=== PATIENT | female | born 1965 | race Caucasian/White ===

== ENCOUNTER → 2017-12-24 07:49 | Outpatient (CLI) | payer OTHER, SELFPAY ==
[2017-12-24 08:47] LABS: Hemoglobin A1C% w Est Avg Glu 7.3 % (4.0-6.0)
[2017-12-24 09:08] LABS: Alanine Aminotransferase 42 IU/L (9-52); Albumin 4.4 g/dL (3.5-5.0); Albumin Globulin Ratio 1.6 (1.0-2.8); Alkaline Phosphatase 66 U/L (38-126); Aspartate Aminotransferase 26 IU/L (14-36); BUN Creatinine Ratio 23.3 (6-22); Bilirubin Total 0.4 mg/dL (0.2-1.3); Blood Urea Nitrogen 14 mg/dL (7-17); Calcium 10.1 mg/dL (8.4-10.2); Carbon Dioxide 32 mmol/L (22-32); Chloride 98 mmol/L (98-107); Cholesterol 153 mg/dL (140-199); Estimated Glomerular Filt Rate > 60.0 mL/min (>60); Globulin 2.8 g/dL (1.7-4.1); Glucose 142 mg/dL (70-100); HDL Cholesterol 48 mg/dL (40-60); HEMOLYSIS < 15 (0-50); LDL Cholesterol Calculated 87 mg/dL (<100); Magnesium 1.5 mg/dL (1.6-2.3); Potassium 4.9 mmol/L (3.4-5.1); Sodium 143 mmol/L (137-145); Total Protein 7.2 g/dL (6.3-8.2); Triglycerides 91 mg/dL (35-150)
[2017-12-24 09:35] LABS: TSH w/ Reflex to FT4 0.26 uIU/mL (0.47-4.68)
[2017-12-24 10:12] LABS: Free T4, Direct Thyroxine 1.08 ng/dL (0.78-2.19)
== END ==
PROVIDERS: PCP Physician Assistant; Visit Provider Internal Medicine
DX: I47.2 Ventricular tachycardia (principal); E78.00 Pure hypercholesterolemia, unspecified
CPT/HCPCS: 36415; 80053; 80061; 83036; 83735; 84439; 84443

== ENCOUNTER → 2019-02-15 07:29 | Outpatient (CLI) | payer OTHER, SELFPAY ==
[2019-02-15 08:35] LABS: Add Manual Diff / Slide Review NO; Basophils Absolute Auto 100 /uL (0-100); Basophils Percent Auto 0.7 % (0-2); Eosinophils Absolute Auto 500 /uL (0-450); Eosinophils Percent Auto 4.2 % (2-4); Hemoglobin 14.2 g/dL (12.0-16.0); Lymphocytes Absolute Auto 3600 /uL (1100-4500); Lymphocytes Percent Auto 32.6 % (25-40); Mean Corpuscular Hemoglobin 27.1 PG (26-34); Mean Corpuscular Volume 82.1 fL (80-100); Monocytes Absolute Auto 900 /uL (0-900); Neutrophils Absolute Auto 6000 /uL (1500-7000); Neutrophils Percent Auto 54.5 % (50-75); Platelet Count 351 X10^3/uL (150-400); Red Blood Cell Count 5.24 X10^6/uL (4.0-5.2); Red Cell Distribution Width 15.4 % (11.6-14.8)
[2019-02-15 08:56] LABS: Alanine Aminotransferase 27 IU/L (9-52); Albumin 4.3 g/dL (3.5-5.0); Albumin Globulin Ratio 1.5 (1.0-2.8); Alkaline Phosphatase 66 U/L (38-126); Aspartate Aminotransferase 23 IU/L (14-36); BUN Creatinine Ratio 26.7 (6-22); Bilirubin Total 0.5 mg/dL (0.2-1.3); Blood Urea Nitrogen 16 mg/dL (7-17); Calcium 10.2 mg/dL (8.4-10.2); Carbon Dioxide 32 mmol/L (22-32); Chloride 98 mmol/L (98-107); Cholesterol 163 mg/dL (140-199); Estimated Glomerular Filt Rate > 60.0 mL/min (>60); Globulin 2.8 g/dL (1.7-4.1); Glucose 144 mg/dL (70-100); HDL Cholesterol 45 mg/dL (40-60); HEMOLYSIS < 15 (0-50); LDL Cholesterol Calculated 96 mg/dL (<100); Potassium 4.6 mmol/L (3.4-5.1); Sodium 140 mmol/L (137-145); Total Protein 7.1 g/dL (6.3-8.2); Triglycerides 109 mg/dL (35-150)
== END ==
PROVIDERS: PCP Physician Assistant; Visit Provider Physician Assistant
DX: E11.9 Type 2 diabetes mellitus without complications (principal); E78.5 Hyperlipidemia, unspecified; I10 Essential (primary) hypertension
CPT/HCPCS: 36415; 80053; 80061; 83036; 85025

== ENCOUNTER → 2019-11-10 10:30 | Outpatient (CLI) | payer OTHER, SELFPAY | PROVIDERS: PCP Physician Assistant; Referring Provider Physician Assistant; Visit Provider Physician Assistant | DX: Z20.828 Contact with and (suspected) exposure to other viral communicable diseases (principal) | CPT/HCPCS: 36415; 86769 ==

== ENCOUNTER → 2020-01-28 08:56 | Outpatient (CLI) | payer OTHER, SELFPAY ==
--- NOTE | 2020-01-28 | DI.MG.S_ITS ---
BILATERAL DIGITAL DIAGNOSTIC MAMMOGRAM 3D/2D: 01/28/2020 CLINICAL: Right breast pain. Comparison is made to exams dated: 01/20/2017 mammogram, 09/24/2013 mammogram, and 04/18/2009 mammogram - [facility]. There are scattered fibroglandular elements in both breasts. There is a stable 8 mm oval asymmetry in the right breast central to the nipple anterior depth. No other significant masses, calcifications, or other findings are seen in either breast. Specifically, no finding to correspond to the patient's pain. IMPRESSION: INCOMPLETE: NEEDS ADDITIONAL IMAGING EVALUATION The 8 mm oval asymmetry in the right breast is stable but not previously characterized. There is no abnormality seen in the right breast to correspond with the pain in the middle depth in the superior aspect. An ultrasound is recommended. This was performed immediately following this exam. This exam was interpreted at Station ID: [id number]. NOTE: For mammograms, a report in lay terms will be sent to the patient. Approximately 15% of breast malignancies will not be visualized mammographically. In the management of a palpable breast mass, a negative mammogram must not discourage biopsy of a clinically suspicious lesion. Electronically Signed By: Shira macedo/:01/28/2020 09:45:47 ACR BI-RADS Category 0: Incomplete 3340F
--- NOTE | 2020-01-28 | DI.US.S_ITS ---
LIMITED ULTRASOUND OF RIGHT BREAST AND AXILLA: 01/28/2020 CLINICAL: Right breast area of pain. Comparison is made to exams dated: 01/28/2020 mammogram, 01/20/2017 mammogram, 09/24/2013 mammogram, 09/24/2013, and 04/18/2009 mammogram - [facility]. Color flow and real-time ultrasound of the right breast 1-2 o'clock, and axilla regions were performed. Lamb scale images of the real-time examination were reviewed. There is a 0.7 cm x 0.5 cm x 0.7 cm oval mass in the right breast at 2 o'clock anterior depth 2 cm from the nipple. This oval mass displays an abrupt boundary and posterior acoustic enhancement. Color flow imaging demonstrates that there is vascularity present. This correlates with mammography findings and has been stable over multiple years on mammogram. No significant abnormalities were seen sonographically in the right axilla. No finding to correspond to the patient's pain in the superior region. IMPRESSION: PROBABLY BENIGN The 0.7 cm x 0.5 cm x 0.7 cm oval mass in the right breast is consistent with a fibroadenoma and is probably benign. A follow-up ultrasound in 6 months is recommended. There is no abnormality seen in the right breast to correspond with the pain in the superior aspect. Findings and recommendations were conveyed to the patient at time of exam. This exam was interpreted at Station ID: [id number]. Electronically Signed By: Shira macedo/:01/28/2020 11:11:02 letter sent: Followup Recommended Ultrasound BI-RADS: 3 Probably benign
== END ==
PROVIDERS: PCP Physician Assistant; Referring Provider Physician Assistant; Visit Provider Physician Assistant
DX: R92.8 Other abnormal and inconclusive findings on diagnostic imaging of breast (principal); N63.12 Unspecified lump in the right breast, upper inner quadrant; N64.4 Mastodynia
CPT/HCPCS: 76642; 77066; G0279

== ENCOUNTER → 2020-02-07 07:12 | Outpatient (CLI) | payer OTHER, SELFPAY ==
[2020-02-07 08:04] LABS: Add Manual Diff / Slide Review NO; Basophils Absolute Auto 100 /uL (0-100); Basophils Percent Auto 0.9 % (0-2); Eosinophils Absolute Auto 400 /uL (0-450); Hematocrit 42.7 % (36-46); Hemoglobin 14.3 g/dL (12.0-16.0); Lymphocytes Absolute Auto 3400 /uL (1100-4500); Lymphocytes Percent Auto 33.4 % (25-40); Mean Corpuscular HGB Conc 33.4 % (30-36); Mean Corpuscular Hemoglobin 28.3 PG (26-34); Mean Corpuscular Volume 84.8 fL (80-100); Monocytes Absolute Auto 800 /uL (0-900); Monocytes Percent Auto 7.8 % (3-14); Neutrophils Absolute Auto 5500 /uL (1500-7000); Neutrophils Percent Auto 53.9 % (50-75); Platelet Count 320 X10^3/uL (150-400); Red Blood Cell Count 5.04 X10^6/uL (4.0-5.2); Red Cell Distribution Width 14.5 % (11.6-14.8); White Blood Cell Count 10.3 X10^3/uL (4.5-11.0)
[2020-02-07 08:13] LABS: Hemoglobin A1C% w Est Avg Glu 7.4 % (4.0-6.0)
[2020-02-07 08:19] LABS: Alanine Aminotransferase 30 IU/L (<35); Albumin 4.6 g/dL (3.5-5.0); Albumin Globulin Ratio 1.7 (1.0-2.8); Alkaline Phosphatase 65 U/L (38-126); Aspartate Aminotransferase 33 IU/L (14-36); BUN Creatinine Ratio 21.2 (6-22); Bilirubin Total 0.5 mg/dL (0.2-1.3); Blood Urea Nitrogen 14 mg/dL (7-17); Calcium 10.5 mg/dL (8.4-10.2); Carbon Dioxide 32 mmol/L (22-32); Chloride 98 mmol/L (98-107); Cholesterol 154 mg/dL (140-199); Estimated Glomerular Filt Rate > 60.0 mL/min (>60); Globulin 2.7 g/dL (1.7-4.1); Glucose 171 mg/dL (70-100); HDL Cholesterol 45 mg/dL (40-60); HEMOLYSIS < 15 (0-50); LDL Cholesterol Calculated 84 mg/dL (<100); Potassium 4.6 mmol/L (3.4-5.1); Sodium 140 mmol/L (137-145); Total Protein 7.3 g/dL (6.3-8.2); Triglycerides 123 mg/dL (35-150)
== END ==
PROVIDERS: PCP Physician Assistant; Referring Provider Physician Assistant; Visit Provider Physician Assistant
DX: I10 Essential (primary) hypertension (principal); E78.5 Hyperlipidemia, unspecified; E11.9 Type 2 diabetes mellitus without complications
CPT/HCPCS: 36415; 80053; 80061; 83036; 85025

== ENCOUNTER → 2020-08-11 14:46 | Outpatient (CLI) | payer OTHER, SELFPAY ==
[2020-08-11] MEDS: COVID-19 VACC #1, MRNA(MOD) 100 MCG/0.5 ML VIAL IM (14:51)
== END ==
PROVIDERS: PCP Physician Assistant; Visit Provider Internal Medicine
DX: Z23 Encounter for immunization (principal)
CPT/HCPCS: 0011A; 91301

== ENCOUNTER → 2020-09-08 15:19 | Outpatient (CLI) | payer OTHER, SELFPAY ==
[2020-09-08] MEDS: COVID-19 VACC #2, MRNA(MOD) 100 MCG/0.5 ML VIAL IM (15:32)
== END ==
PROVIDERS: PCP Physician Assistant; Visit Provider Internal Medicine
DX: Z23 Encounter for immunization (principal)
CPT/HCPCS: 0012A; 91301

== ENCOUNTER → 2020-09-16 10:28 | Outpatient (CLI) | payer OTHER, SELFPAY ==
[2020-09-16 11:19] LABS: Add Manual Diff / Slide Review NO; Basophils Absolute Auto 100 /uL (0-100); Basophils Percent Auto 1.2 % (0-2); Eosinophils Absolute Auto 700 /uL (0-450); Hematocrit 46.7 % (36-46); Lymphocytes Absolute Auto 4200 /uL (1100-4500); Lymphocytes Percent Auto 35.2 % (25-40); Mean Corpuscular HGB Conc 32.2 % (30-36); Mean Corpuscular Hemoglobin 27.5 PG (26-34); Mean Corpuscular Volume 85.3 fL (80-100); Monocytes Absolute Auto 900 /uL (0-900); Monocytes Percent Auto 7.4 % (3-14); Neutrophils Absolute Auto 6000 /uL (1500-7000); Neutrophils Percent Auto 50.2 % (50-75); Platelet Count 341 X10^3/uL (150-400); Red Blood Cell Count 5.47 X10^6/uL (4.0-5.2); Red Cell Distribution Width 15.1 % (11.6-14.8); White Blood Cell Count 11.9 X10^3/uL (4.5-11.0)
[2020-09-16 11:47] LABS: Iron 70 ug/dL (37-170)
[2020-09-16 11:49] LABS: Alanine Aminotransferase 40 IU/L (<35); Albumin 4.6 g/dL (3.5-5.0); Albumin Globulin Ratio 1.6 (1.0-2.8); Alkaline Phosphatase 76 U/L (38-126); Aspartate Aminotransferase 33 IU/L (14-36); Bilirubin Total 0.5 mg/dL (0.2-1.3); Blood Urea Nitrogen 13 mg/dL (7-17); Calcium 10.6 mg/dL (8.4-10.2); Carbon Dioxide 34 mmol/L (22-32); Chloride 97 mmol/L (98-107); Cholesterol 160 mg/dL (140-199); Estimated Glomerular Filt Rate > 60.0 mL/min (>60); Globulin 2.9 g/dL (1.7-4.1); Glucose 140 mg/dL (70-100); HDL Cholesterol 49 mg/dL (40-60); HEMOLYSIS < 15 (0-50); LDL Cholesterol Calculated 83 mg/dL (<100); Potassium 4.8 mmol/L (3.4-5.1); Sodium 139 mmol/L (137-145); Total Protein 7.5 g/dL (6.3-8.2); Triglycerides 141 mg/dL (35-150)
[2020-09-16 11:50] LABS: Hemoglobin A1C% w Est Avg Glu 7.7 % (4.0-6.0)
[2020-09-16 12:02] LABS: Percent Iron Saturation 16 % (15-50); Total Iron Binding Capacity 429 ug/dL (265-497); Transferrin 314 mg/dL (206-381)
[2020-09-16 12:19] LABS: TSH w/ Reflex to FT4 0.12 uIU/mL (0.47-4.68)
[2020-09-16 12:26] LABS: Ferritin 16 ng/mL (11-264)
[2020-09-16 13:44] LABS: Free T4, Direct Thyroxine 1.25 ng/dL (0.78-2.19); HEMOLYSIS 25 (0-50)
== END ==
PROVIDERS: PCP Physician Assistant; Referring Provider Physician Assistant; Visit Provider Physician Assistant
DX: G89.4 Chronic pain syndrome (principal); E78.5 Hyperlipidemia, unspecified; E11.9 Type 2 diabetes mellitus without complications; E83.52 Hypercalcemia; D72.829 Elevated white blood cell count, unspecified
CPT/HCPCS: 36415; 80053; 80061; 82728; 83036; 83540; 83550; 84439; 84443; 85025

== ENCOUNTER → 2020-09-29 10:19 | Outpatient (CLI) | payer OTHER, SELFPAY ==
--- NOTE | 2020-09-29 | DI.RAD.S_ITS ---
PROCEDURE: XR CHEST 2V INDICATIONS: SOB TECHNIQUE: 2 views of the chest were acquired. COMPARISON: [facility], , CHEST 1 VIEW, 09/29/2016, 14:37. FINDINGS: Surgical changes and devices: Cardiac pacer Scattered subsegmental atelectasis and/or scarring. No focal consolidation. There are mildly increased diffuse hazy and ground-glass bibasilar opacities. No pleural effusions or pneumothorax. Mediastinum: Mediastinal contours are normal. Heart size is normal. Bones and chest wall: Chronic right rib deformities. Surgical clips projecting in the right upper quadrant. IMPRESSION: Mildly increased hazy and ground-glass bibasilar opacities, raising possibility of early pulmonary edema although recommend clinical correlation. This could represent increased atelectasis. If there is persistent clinical diagnostic uncertainty, continued surveillance with short interval chest radiographs after treatment is recommended. Dictated by: Ethan Mg M.D. on 09/29/2020 at 11:36 Approved by: Ethan Mg M.D. on 09/29/2020 at 11:37
[2020-09-29 11:53] LABS: Free T4, Direct Thyroxine 1.29 ng/dL (0.78-2.19)
[2020-09-29 11:54] LABS: BUN Creatinine Ratio 18.2 (6-22); Blood Urea Nitrogen 10 mg/dL (7-17); Calcium 10.5 mg/dL (8.4-10.2); Carbon Dioxide 34 mmol/L (22-32); Chloride 99 mmol/L (98-107); Estimated Glomerular Filt Rate > 60.0 mL/min (>60); Glucose 151 mg/dL (70-100); HEMOLYSIS < 15 (0-50); Potassium 4.1 mmol/L (3.4-5.1); Sodium 139 mmol/L (137-145)
[2020-09-29 12:02] LABS: NT-proBNP (BNP-Adult 18+) 122 pg/mL (<125)
[2020-09-29 12:07] LABS: Thyroid Stimulating Hormone 0.066 uIU/mL (0.47-4.68)
[2020-09-30 15:03] LABS: Parathyroid Hormone Int 36 pg/mL (15-65); Triiodothyronine T3 Total 142 ng/dL (71-180)
[2020-09-30 17:07] LABS: Anti Thyroglobulin Antibody <1.0 IU/mL (0.0-0.9); Thyroid Peroxidase Antibodies 14 IU/mL (0-34)
[2020-10-07 05:36] LABS: Triiodothyronine T3 Reverse 19.2 ng/dL (9.2-24.1)
== END ==
PROVIDERS: PCP Physician Assistant; Referring Provider Physician Assistant; Visit Provider Physician Assistant
DX: R06.02 Shortness of breath (principal); E11.9 Type 2 diabetes mellitus without complications; E61.1 Iron deficiency; E83.52 Hypercalcemia; R79.89 Other specified abnormal findings of blood chemistry
CPT/HCPCS: 36415; 71046; 80048; 83880; 83970; 84439; 84443; 84480; 84481; 84482; 86376; 86800

== ENCOUNTER → 2020-10-19 08:57 | Outpatient (CLI) | payer OTHER, SELFPAY ==
--- NOTE | 2020-10-19 | DI.ECHO.S_ITS ---
[place] [facility]---------+ [facility] +---------+ : : [address] : : : : [id number] : : : : Phone: [phone]+ Echocardiogram Report + + :Name: JANNETTE JARA Study Date: 10/19/2020 Height: 62 in : :[facility] ReadingLocation: Weight: 204 lb : : Gender: Female BSA: 1.9 m2 : :: 1965 Age: 55 yrs BP: 144/86 mmHg: :Reason For Study: SHORTNESS OF BREATH : :Ordering Physician: WANDA, : :DEMETRIO Performed By: Aarti Mejia : :Referring: DEMETRIO MUÑOZ : + + Interpretation Summary The study quality was technically difficult. The left ventricle is grossly normal size. The ejection fraction is estimated to be 65-70%. The right ventricle is grossly normal size. The right ventricular systolic function is normal. There is a pacemaker lead in the right ventricle. Pacemaker is a new finding since the previous study. No significant valvular pathology seen. Procedure: A two-dimensional transthoracic echocardiogram with color flow and Doppler was performed. The study quality was technically difficult. A contrast injection of Definity was performed to improve assessment of LV function. Comparison is made with the echocardiogram of 03/27/2018. Most of the acoustic windows were suboptimal, but the best imaging was obtained from the subcostal window. The patient was in normal sinus rhythm during the exam. Left Ventricle: The left ventricle is grossly normal size. There is normal left ventricular wall thickness. There is no thrombus. The ejection fraction is estimated to be 65-70%. Septal motion is consistent with conduction abnormality. MV E/A: 1.2 Med Peak E' Willie: 8.7 cm/sec E/E' med: 11.0. Right Ventricle: There is a pacemaker lead in the right ventricle. The right ventricle is grossly normal size. The right ventricular systolic function is normal. Atria: The left atrium grossly appears normal in size. Right atrial size is normal. There is a catheter/pacemaker lead seen in the right atrium. There is no Doppler evidence for an interatrial shunt. Mitral Valve: The mitral valve is grossly normal. There is trace mitral regurgitation. Aortic Valve: The aortic valve is not well visualized. There is no aortic valve stenosis. No aortic regurgitation is present. Tricuspid Valve: The tricuspid valve is not well visualized, but is grossly normal. There is trace tricuspid regurgitation. Pulmonary artery pressures cannot be estimated because of the lack of a measurable TR jet velocity but the IVC suggests a CVP of around 3 mmHg. Pulmonic Valve: The pulmonic valve is not well seen, but is grossly normal. Great Vessels: The aortic root is normal size. The ascending aorta could not be visualized. The IVC is of normal diameter and collapses greater than 50% with a sniff. This suggests a low right atrial pressure of 3 mm Hg. Pericardium/ Pleura There is no pericardial effusion. There is an anterior echo-free space consistent with a fat pad. There is no pleural effusion. MMode/2D Measurements & Calculations LVIDd: 4.5 cm LVOT diam: 2.0 cm LVIDs: 2.7 cm Ao root diam: 3.0 cm FS: 38.9 % Ao Arch Diam (Prox Trans): 3.1 cm IVSd: 0.82 cm LVPWd: 0.67 cm LV spaulding. diameter/BSA (cm/m^2): 2.3 LV sys. diameter/BSA (cm/m^2): 1.4 LA A4 area: 20.5 cm2 RA long axis: 4.9 cm LA length (vol): 5.3 cm RA area: 15.9 cm2 RA vol: 44.2 ml RA : 22.9 ml/m2 IVC diam: 1.2 cm RVD1 (basal): 2.2 cm TAPSE: 2.1 cm Doppler Measurements & Calculations Ao V2 max: 155.3 cm/sec LVOT Max Willie: 124.3 cm/sec Ao V2 mean: 105.0 cm/sec LV V1 max P.2 mmHg Ao max P.7 mmHg LV V1 VTI: 26.4 cm Ao mean P.2 mmHg FABY(I,D): 2.5 cm2 Ao V2 VTI: 32.8 cm FABY(V,D): 2.5 cm2 sev ratio: 0.81 FABY indexed to BSA (cm^2/m^2): 1.3 MV E max willie: 95.5 cm/sec PA V2 max: 106.3 cm/sec MV A max willie: 78.7 cm/sec PA V2 mean: 71.7 cm/sec MV E/A: 1.2 PA mean P.3 mmHg Med Peak E' Willie: 8.7 cm/sec PA pr(Accel): 43.0 mmHg E/E' med: 11.0 Lat Peak E' Willie: 11.1 cm/sec E/E' lat: 8.6 E/e' average: 9.8 MV dec time: 0.22 sec SV(LVOT): 82.0 ml Reading Physician:04:37 PM
== END ==
PROVIDERS: PCP Physician Assistant; Referring Provider Physician Assistant; Visit Provider Physician Assistant
DX: R06.02 Shortness of breath (principal)
CPT/HCPCS: 93306; Q9957

== ENCOUNTER → 2020-12-22 19:00 | Outpatient (ROUT) | payer OTHER, SELFPAY ==
[2020-12-22 19:07] LABS: Add Manual Diff / Slide Review NO; Basophils Absolute Auto 100 /uL (0-100); Basophils Percent Auto 0.8 % (0-2); Eosinophils Absolute Auto 200 /uL (0-450); Eosinophils Percent Auto 1.2 % (2-4); Hematocrit 46.9 % (36-46); Hemoglobin 14.7 g/dL (12.0-16.0); Lymphocytes Absolute Auto 2200 /uL (1100-4500); Lymphocytes Percent Auto 16.6 % (25-40); Mean Corpuscular HGB Conc 31.3 % (30-36); Mean Corpuscular Hemoglobin 27.1 PG (26-34); Mean Corpuscular Volume 86.7 fL (80-100); Monocytes Absolute Auto 800 /uL (0-900); Neutrophils Absolute Auto 10200 /uL (1500-7000); Neutrophils Percent Auto 75.4 % (50-75); Platelet Count 334 X10^3/uL (150-400); Red Blood Cell Count 5.41 X10^6/uL (4.0-5.2); Red Cell Distribution Width 15.6 % (11.6-14.8); White Blood Cell Count 13.5 X10^3/uL (4.5-11.0)
[2020-12-22 19:20] LABS: Hemoglobin A1C% w Est Avg Glu 7.7 % (4.0-6.0)
[2020-12-22 19:27] LABS: Alanine Aminotransferase 41 IU/L (<35); Albumin 4.2 g/dL (3.5-5.0); Albumin Globulin Ratio 1.7 (1.0-2.8); Alkaline Phosphatase 83 U/L (38-126); Aspartate Aminotransferase 38 IU/L (14-36); BUN Creatinine Ratio 25.5 (6-22); Bilirubin Total 0.3 mg/dL (0.2-1.3); Blood Urea Nitrogen 12 mg/dL (7-17); Carbon Dioxide 32 mmol/L (22-32); Chloride 98 mmol/L (98-107); Cholesterol 149 mg/dL (140-199); Estimated Glomerular Filt Rate > 60.0 mL/min (>60); Globulin 2.5 g/dL (1.7-4.1); Glucose 116 mg/dL (70-100); HDL Cholesterol 59 mg/dL (40-60); HEMOLYSIS < 15 (0-50); LDL Cholesterol Calculated 66 mg/dL (<100); Sodium 139 mmol/L (137-145); Total Protein 6.7 g/dL (6.3-8.2); Triglycerides 122 mg/dL (35-150)
== END ==
PROVIDERS: PCP Physician Assistant; Visit Provider Physician Assistant
DX: J44.9 Chronic obstructive pulmonary disease, unspecified (principal); I10 Essential (primary) hypertension; E11.9 Type 2 diabetes mellitus without complications
CPT/HCPCS: 80053; 80061; 83036; 85025

== ENCOUNTER → 2021-04-10 15:05 | Outpatient (CLI) | payer OTHER, SELFPAY ==
[2021-04-10 16:38] LABS: BUN Creatinine Ratio 18.6 (6-22); Blood Urea Nitrogen 11 mg/dL (7-17); Calcium 10.7 mg/dL (8.4-10.2); Carbon Dioxide 34 mmol/L (22-32); Chloride 100 mmol/L (98-107); Estimated Glomerular Filt Rate > 60.0 mL/min (>60); Glucose 117 mg/dL (70-100); HEMOLYSIS < 15 (0-50); Potassium 4.5 mmol/L (3.4-5.1); Sodium 141 mmol/L (137-145)
== END ==
PROVIDERS: PCP Physician Assistant; Referring Provider Physician Assistant; Visit Provider Physician Assistant
DX: E11.9 Type 2 diabetes mellitus without complications (principal)
CPT/HCPCS: 36415; 80048

== ENCOUNTER → 2021-04-17 09:40 | Outpatient (CLI) | payer OTHER, SELFPAY ==
--- NOTE | 2021-04-17 10:44 | DI.CT.S_ITS ---
PROCEDURE: CT ABDOMEN PELVIS W CON INDICATIONS: Epigastric pain TECHNIQUE: After the administration of oral and IV contrast, axial sections were acquired from the lung bases to the pubic symphysis. Coronal and sagittal reformats were performed. For radiation dose reduction, the following was used: automated exposure control, adjustment of mA and/or kV according to patient size. COMPARISON: [facility], CT, KIDNEY/ URETER/BLADDER, 02/25/2011, 12:36. [facility], CT, ABDOMEN/PELVIS WITH CONTRAST, 02/13/2016, 12:52. [facility], CR, XR CHEST 2V, 09/29/2020, 10:40. FINDINGS: Image quality: Excellent. Lung bases: Unremarkable. Portions of the right ribs have been previously removed. Heart: No significant findings. Pacer leads are partially seen. ABDOMEN: Liver: Diffuse fatty liver infiltration is noted. Gallbladder: Removed. Biliary ducts: Unremarkable. Pancreas: Unremarkable. Spleen: Unremarkable. Adrenal Glands: Unremarkable. Kidneys and Ureters: The right kidney is not seen. There is compensatory hypertrophy of the left kidney. The left kidney demonstrates no hydronephrosis or masses on these images. Stomach and Bowel: Proximal gastric wall thickening is seen. No significant surrounding inflammatory changes are seen. The duodenum is within normal limits. Mild prominence proximal small bowel loops can be seen, which measure up to 2.8 cm. Within the jejunum, there are multiple levels of thickened small bowel loops. There is a moderate amount of stool seen within colon. Peritoneum: No abnormal intraperitoneal fluid. No free air. Ventral Wall: No hernia. Abdominal Nodes: No retroperitoneal or mesenteric adenopathy by size criteria. Vessels: Aorta and inferior vena cava are normal in size. Atherosclerotic calcification is noted. PELVIS: Pelvic Organs: This patient is status post hysterectomy. No adnexal masses are seen. Bladder: Unremarkable. Pelvic Nodes: No enlarged lymph nodes. Miscellaneous: There is a mild fat containing left inguinal hernia. Bones: Degenerative changes are seen throughout, which are worst involving the lumbar spine. IMPRESSION: Several loops of proximal jejunum demonstrate thickened vasques, which may be related to the patient's history of epigastric pain. Proximal gastric wall thickening is seen, which is most likely secondary to incomplete distention. There is a moderate amount of stool seen within the colon. Please correlate with an underlying history of constipation. Right kidney absent, with compensatory hypertrophy of the left kidney. Incidental note is made of: Pacer leads Prior removal of portions of the right ribs Fatty liver infiltration Cholecystectomy Hysterectomy Mild fat containing left inguinal hernia Dictated by: Salomón Bedolla M.D. on 04/17/2021 at 13:48 Approved by: Salomón Bedolla M.D. on 04/17/2021 at 13:52
== END ==
PROVIDERS: PCP Physician Assistant; Referring Provider Physician Assistant; Visit Provider Physician Assistant
DX: R10.13 Epigastric pain (principal); R79.89 Other specified abnormal findings of blood chemistry; K76.0 Fatty (change of) liver, not elsewhere classified; K40.90 Unilateral inguinal hernia, without obstruction or gangrene, not specified as recurrent; Z95.0 Presence of cardiac pacemaker; Z90.49 Acquired absence of other specified parts of digestive tract; Z90.710 Acquired absence of both cervix and uterus
CPT/HCPCS: 74177

== ENCOUNTER → 2022-10-31 09:57 | Outpatient (CLI) | payer OTHER, SELFPAY ==
--- NOTE | 2022-10-31 | DI.MG.S_ITS ---
BILATERAL DIGITAL DIAGNOSTIC MAMMOGRAM 3D/2D SHORT-TERM FOLLOW-UP: 10/31/2022 CLINICAL: Late short term follow up of the right breast, due for bilateral imaging. Comparison is made to exams dated: 01/28/2020 ultrasound, 01/28/2020 mammogram, and 01/20/2017 mammogram - [facility]. There are scattered areas of fibroglandular density in both breasts (category b / 25%-50% glandular tissue). There is a stable 8 mm oval focal asymmetry in the right breast at 2 o'clock anterior depth. No other significant masses, calcifications, or other findings are seen in either breast. IMPRESSION: INCOMPLETE: NEEDS ADDITIONAL IMAGING EVALUATION The stable 8 mm oval focal asymmetry in the right breast is indeterminate. An ultrasound is recommended. Based on the Tyrer Cuzick model (a risk assessment model) the patient's lifetime risk is 5.5% and her 10 year risk is 2.0%. According to the ACR, ACS, and NCCN guidelines, an annual breast MRI exam along with mammogram is recommended if the patient's lifetime risk is 20% or greater. This exam was interpreted at Station ID: [id number]. NOTE: For mammograms, a report in lay terms will be sent to the patient. Approximately 15% of breast malignancies will not be visualized mammographically. In the management of a palpable breast mass, a negative mammogram must not discourage biopsy of a clinically suspicious lesion. Electronically Signed By: Bridger Howell M.D. lc/:10/31/2022 11:35:09 ACR BI-RADS Category 0: Incomplete 3340F
--- NOTE | 2022-10-31 | DI.US.S_ITS ---
LIMITED ULTRASOUND OF RIGHT BREAST: 10/31/2022 CLINICAL: Late right breast follow up. Comparison is made to exams dated: 10/31/2022 mammogram, 01/28/2020 ultrasound, 01/28/2020 mammogram, and 01/20/2017 mammogram - [facility]. Color flow and real-time ultrasound of the right breast were performed. Lamb scale images of the real-time examination were reviewed. There is a 0.9 cm x 0.4 cm x 0.7 cm oval circumscribed mass in the right breast at 2 o'clock anterior depth 2 cm from the nipple. This correlates with mammography findings. IMPRESSION: PROBABLY BENIGN The 0.9 cm x 0.4 cm x 0.7 cm oval mass in the right breast resembles a fibroadenoma and is probably benign. This is very slightly increased in size compared to 2020, when it measured 0.7 x 0.5 x 0.7cm. An additional follow-up ultrasound in 6 months is recommended. No interval imaging between and 2019 was obtained. This exam was interpreted at Station ID: [id number]. Electronically Signed By: Bridger Howell M.D. /:10/31/2022 11:38:10 letter sent: Followup Recommended Ultrasound BI-RADS: 3 Probably benign
== END ==
PROVIDERS: PCP Physician Assistant; Referring Provider Physician Assistant; Visit Provider Physician Assistant
DX: R92.8 Other abnormal and inconclusive findings on diagnostic imaging of breast (principal); N63.12 Unspecified lump in the right breast, upper inner quadrant
CPT/HCPCS: 76642; 77066; G0279

== ENCOUNTER → 2023-06-02 09:55 | Outpatient (CLI) | payer OTHER, SELFPAY ==
--- NOTE | 2023-06-02 | DI.US.S_ITS ---
LIMITED ULTRASOUND OF RIGHT BREAST: 06/02/2023 CLINICAL: 6 month follow-up of FA. Comparison is made to exams dated: 10/31/2022 ultrasound, 10/31/2022 mammogram, 01/28/2020 ultrasound, 01/28/2020 mammogram, and 01/20/2017 mammogram - [facility]. Color flow and real-time ultrasound of the right breast 2 o'clock region were performed. There is a 0.7 x 0.8 x 0.4 cm oval mass in the right breast at 2 o'clock, 2 cm from the nipple. This oval mass is hypoechoic with circumscribed margins and posterior acoustic enhancement. Previously the mass measured 0.9 cm x 0.4 cm x 0.7 cm on 10/31/2022. IMPRESSION: PROBABLY BENIGN Right breast 0.8 cm oval circumscribed mass at 2 o'clock, stable since 10/31/2022. Finding is probably benign. A follow-up ultrasound in 6 months is recommended to demonstrate 1 year stability. Patient will be due for bilateral mammogram at that time. Findings and recommendations were conveyed to the patient during today's evaluation. This exam was interpreted at Station ID: [id number]. Electronically Signed By: Kathy Shepherd M.D., PH.D eb/:06/02/2023 19:58:27 letter sent: Followup Recommended Ultrasound BI-RADS: 3 Probably benign
== END ==
PROVIDERS: PCP Physician Assistant; Referring Provider Physician Assistant; Visit Provider Physician Assistant
DX: N63.12 Unspecified lump in the right breast, upper inner quadrant (principal); R92.8 Other abnormal and inconclusive findings on diagnostic imaging of breast
CPT/HCPCS: 76642

== ENCOUNTER → 2023-12-04 13:02 | Outpatient (CLI) | payer OTHER, SELFPAY ==
--- NOTE | 2023-12-04 | DI.US.S_ITS ---
LIMITED ULTRASOUND OF RIGHT BREAST: 12/04/2023 CLINICAL: Follow up from addtional views. Comparison is made to exams dated: 12/04/2023 mammogram, 06/02/2023 ultrasound, 10/31/2022 ultrasound, 10/31/2022 mammogram, and 01/28/2020 ultrasound - [facility]. Color flow ultrasound of the right breast 2 o'clock region was performed. Lamb scale images of the real-time examination were reviewed. There is a stable benign 0.5 cm x 0.8 cm x 0.5 cm oval mass in the right breast at 2 o'clock middle depth 2 cm from the nipple. This oval mass is hypoechoic with an abrupt boundary, internal echoes, and posterior acoustic enhancement. This correlates with mammography findings. Color flow imaging demonstrates that there is no vascularity present. IMPRESSION: BENIGN There is no sonographic evidence of malignancy. The 0.5 cm x 0.8 cm x 0.5 cm oval mass in the right breast most likely is a fibroadenoma, has demontrated two years of stability and is therefore benign. Return to annual mammogram screening schedule is recommended. Findings and recommendations were conveyed to the patient at time of exam. This exam was interpreted at Station ID: [id number]. Electronically Signed By: Shira macedo/:12/04/2023 16:48:01 letter sent: Normal Exam Ultrasound BI-RADS: 2 Benign
--- NOTE | 2023-12-04 13:03 | DI.MG.S_ITS ---
BILATERAL DIGITAL DIAGNOSTIC MAMMOGRAM 3D/2D SHORT-TERM FOLLOW-UP: 12/04/2023 CLINICAL: Patient returns for a 6 month follow up of the right breast, due for bilateral exam. Comparison is made to exams dated: 10/31/2022 mammogram, 01/28/2020 mammogram, and 01/20/2017 mammogram - [facility]. Both breasts are almost entirely fatty (category a/<25% glandular tissue). There is a stable 8 mm oval focal asymmetry in the right breast at 2 o'clock anterior depth. This is seen in additional views. No other significant masses, calcifications, or other findings are seen in either breast. Mammograms are otherwise stable. IMPRESSION: INCOMPLETE: NEEDS ADDITIONAL IMAGING EVALUATION Bilateral mammograms are stable including the 8 mm oval focal asymmetry in the right breast which is consistent with a fibroadenoma. An ultrasound is recommended to document stable morphology. This was performed immediately following this exam. Left breast mammogram is normal. Based on the Tyrer Cuzick model (a risk assessment model) the patient's lifetime risk is 3.6% and her 10 year risk is 1.4%. According to the ACR, ACS, and NCCN guidelines, an annual breast MRI exam along with mammogram is recommended if the patient's lifetime risk is 20% or greater. This exam was interpreted at Station ID: [id number]. NOTE: For mammograms, a report in lay terms will be sent to the patient. Approximately 15% of breast malignancies will not be visualized mammographically. In the management of a palpable breast mass, a negative mammogram must not discourage biopsy of a clinically suspicious lesion. Electronically Signed By: Shira macedo/:12/04/2023 16:30:42 ACR BI-RADS Category 0: Incomplete 3340F
== END ==
PROVIDERS: PCP Physician Assistant; Referring Provider Physician Assistant; Visit Provider Physician Assistant
DX: R92.8 Other abnormal and inconclusive findings on diagnostic imaging of breast (principal); N63.12 Unspecified lump in the right breast, upper inner quadrant; R92.313 Mammographic fatty tissue density, bilateral breasts
CPT/HCPCS: 76642; 77066; G0279

== ENCOUNTER 2024-03-01 13:17 | Emergency (ER) | payer OTHER, SELFPAY ==
[2024-03-01] VITALS (34 sets, daily range): BP systolic 104–137; BP diastolic 53–85; PULSE 10–221; RESP 18–39; O2SAT 95–100; BMI 30.2
--- NOTE | 2024-03-01 13:25 | DI.RAD.S_ITS ---
PROCEDURE: XR CHEST 1V INDICATIONS: chest pain TECHNIQUE: One view of the chest was acquired. COMPARISON: [facility], CR, XR CHEST 2V, 09/29/2020, 10:40. FINDINGS: Surgical changes and devices: A pacer device is seen. The leads are seen in stable positions. Cholecystectomy clips are seen. Lungs and pleura: Lungs are clear. No pleural effusions or pneumothorax. Mediastinum: The cardiac contours are within normal limits. The aorta demonstrates calcification and tortuosity. Bones and chest wall: No suspicious bony lesions. Age-appropriate bony degenerative changes are seen. Overlying soft tissues appear unremarkable. IMPRESSION: No acute cardiopulmonary abnormality is seen. Postoperative and degenerative changes are seen. Dictated by: Salomón Bedolla M.D. on 03/01/2024 at 15:01 Approved by: Salomón Bedolla M.D. on 03/01/2024 at 15:01
--- NOTE | 2024-03-01 13:38 | EKG_ITS ---
[facility] [id number] [address] Test Date: 2024-03-01 Pat Name: Jasmina Cisneros Department: Room: Gender: Female Tag Clerk: : 1965 Requested By: Order Number: [id number] Reading MD: Neto Lane MD Measurements Intervals [place]ine Rate: 209 P: AR: QRS: -61 QRSD: 84 T: 90 QT: 216 QTc: 402 Interpretive Statements Critical Test Result: High HR Poor data quality, interpretation may be adversely affected Atrial fibrillation with rapid ventricular response with premature ventricular or aberrantly conducted complexes Left axis deviation Inferior infarct , age undetermined Anterior infarct , age undetermined Electronically Signed On 03-01-2024 13:48:[address] MD
[2024-03-01] MEDS: ADENOSINE 6 MG/2 ML VIAL IV (13:41)
[2024-03-01] MEDS: dilTIAZem 25 MG/5 ML SDV 10 MG IV ×2 (13:47→13:53)
[2024-03-01] MEDS: propofoL 200 MG/20 ML VIAL 75 MG IV (13:59)
[2024-03-01] MEDS: SODIUM CHLORIDE 0.9% 1,000 ML 1000 ML IV (14:05)
[2024-03-01 14:06] LABS: Add Manual Diff / Slide Review NO; Basophils Absolute Auto 100 /uL (0-100); Basophils Percent Auto 0.8 % (0-2); Eosinophils Absolute Auto 100 /uL (0-450); Eosinophils Percent Auto 1.2 % (2-4); Hematocrit 47.2 % (36-46); Hemoglobin 15.6 g/dL (12.0-16.0); Lymphocytes Absolute Auto 3100 /uL (1100-4500); Lymphocytes Percent Auto 25.9 % (25-40); Mean Corpuscular HGB Conc 33.1 % (30-36); Mean Corpuscular Hemoglobin 30.3 PG (26-34); Mean Corpuscular Volume 91.5 fL (80-100); Monocytes Absolute Auto 1100 /uL (0-900); Monocytes Percent Auto 9.3 % (3-14); Neutrophils Absolute Auto 7500 /uL (1500-7000); Neutrophils Percent Auto 62.8 % (50-75); Platelet Count 311 X10^3/uL (150-400); Red Blood Cell Count 5.16 X10^6/uL (4.0-5.2); Red Cell Distribution Width 14.1 % (11.6-14.8); White Blood Cell Count 11.9 X10^3/uL (4.5-11.0)
--- NOTE | 2024-03-01 14:10 | EKG_ITS ---
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
[2024-03-01 14:14] LABS: Prothrombin Time 11.1 SECONDS (9.4-12.5)
[2024-03-01 14:17] LABS: PTT Partial Thromboplastin Tim 37 SECONDS (25.1-36.5)
[2024-03-01 14:19] LABS: Alanine Aminotransferase 41 IU/L (<35); Albumin 4.8 g/dL (3.5-5.0); Albumin Globulin Ratio 1.7 (1.0-2.8); Alkaline Phosphatase 71 U/L (38-126); Aspartate Aminotransferase 56 IU/L (14-36); BUN Creatinine Ratio 34.9 (6-22); Bilirubin Total 0.7 mg/dL (0.2-1.3); Blood Urea Nitrogen 22 mg/dL (7-17); Calcium 10.3 mg/dL (8.4-10.2); Carbon Dioxide 20 mmol/L (22-32); Chloride 103 mmol/L (98-107); Creatine Kinase 339 U/L (30-135); Estimated Glomerular Filt Rate > 60 mL/min (>60); Globulin 2.9 g/dL (1.7-4.1); Glucose 138 mg/dL (70-100); HEMOLYSIS < 15 (0-50); Lipase 149 U/L (23-300); Magnesium 1.2 mg/dL (1.6-2.3); Potassium 3.7 mmol/L (3.4-5.1); Sodium 138 mmol/L (137-145); Total Protein 7.7 g/dL (6.3-8.2)
[2024-03-01 14:30] LABS: NT-proBNP (BNP-Adult 18+) 192 pg/mL (<125); Troponin I < 0.012 ng/mL (0.01-0.034)
[2024-03-01] MEDS: MAGNESIUM SULFATE 2 GM/50 ML PIGGYBACK IV (14:59)
--- NOTE | 2024-03-01 15:59 | ED_ITS ---
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 She says it started at 12:30 p.m. roughly 1 hour ago. She generally just does not feel well. This is never happened to her before. She is some mild shortness of breath. She says she feels very shaky maybe some chest tightness. She is supposed to be taking magnesium but ran out about a week ago and stopped taking it. She is followed by cardiology Dr. Cruz as [facility] Related Data Home Medications Medication Instructions Recorded Confirmed albuterol sulfate 90 mcg/actuation ##0 02/27/11 aerosol inhaler (Proventil HFA) chlorthalidone 25 mg tablet 25 mg PO QDAY #30 tabs 03/04/16 hydrocodone 5 mg-acetaminophen 325 1 tab PO TID PRN ##0 03/04/16 mg tablet (Blackstone) meloxicam 15 mg tablet (Mobic) 15 mg PO AMCC #30 tabs 03/04/16 omeprazole 20 mg tablet,delayed 20 mg PO QDAY #0 tabs 03/04/16 release theophylline 300 mg 300 mg PO QDAY ##0 03/04/16 tablet,extended release,12 hr zolpidem 10 mg tablet (Ambien) PRN ##0 03/04/16 amlodipine 5 mg tablet (Norvasc) 5 mg PO QDAY ##0 09/29/16 aspirin 325 mg tablet,delayed 325 mg PO QDAY ##0 09/29/16 release atorvastatin 40 mg tablet (Lipitor) 40 mg PO QDAY ##0 09/29/16 lisinopril 5 mg tablet 5 mg PO QDAY ##0 09/29/16 metformin 500 mg tablet,extended 500 mg PO QDAY ##0 09/29/16 release 24 hr (Glucophage XR) oxymetazoline 0.05 % nasal spray 1 spray intranasal Q12HP PRN ##0 09/29/16 (Afrin (oxymetazoline)) Allergies Allergy/AdvReac Type Severity Reaction Status Date / Time budesonide [From SYMBICORT] Allergy Unknown DIFFICULTY Verified 03/01/24 14:04 BREATHING cephalexin [CEPHALEXIN] Allergy Unknown Verified 03/01/24 14:04 formoterol [From SYMBICORT] Allergy Unknown DIFFICULTY Verified 03/01/24 14:04 BREATHING prochlorperazine Allergy Unknown Verified 03/01/24 14:04 [PROCHLORPERAZINE] Sulfa (Sulfonamide Allergy Unknown Verified 03/01/24 14:04 Antibiotics) [SULFA (SULFONAMIDE ANTIBIOTICS)] varenicline [From CHANTIX] AdvReac Unknown IRRITABLE Verified 03/01/24 14:04 Patient History Social History Smoking Status: Current every day smoker Smoking Status: Current every day smoker tobacco type: vaping alcohol intake frequency: 0-2 drinks per day Substance Use Type: does not use Exam Initial Vital Signs Initial Vital Signs: Vital Signs Pulse Oximetry 99 03/01/24 13:28 GENERAL: Awake alert well-appearing 58-year-old female and in no acute distress. HEENT: Head atraumatic,EOMI, pupils reactive, face symmetric, moist mucous membranes CARDIOVASCULAR: Tachycardic RESPIRATORY: Breath sounds equal bilaterally, no wheezes rales or rhonchi. ABDOMEN: Soft, nontender. Normoactive bowel sounds all 4 quadrants. No guarding or rebound. EXTREMITIES: Normal range of motion, no clubbing or edema. Neurovascularly intact NEUROLOGICAL: Alert and oriented x4.Normal gait and speech. Cranial nerves II through XII grossly intact. SKIN: Warm, dry, no laceration, no petechiae, no rashes or lesions. Procedures Cardioversion Consent Signed: Yes Indication: Tachycardia Number of attempts (shocks): 2 Joules used: 120 and 150 Cardiac rhythm post-cardioversion: Sinus rhythm Additional Comments: After 1st shock patient did convert to a sinus rhythm but then went into a V- tach and was shocked again in into a sinus rhythm Procedural Sedation Consent signed: Yes Time out performed: Yes Indication: cardioversion ASA Class: II Mallampati Airway Classification: Class II IV Propofol dose (mg): 75 Intraservice time/total sedation time (min): 14 ED Sedation Level: Moderate (Concious) Patient Tolerated Procedure: Well and No complications Complications: none Course Orders Ordered: ED Orders 03/01/24 13:25 XR chest 1V Stat EKG-12 Lead Stat 03/01/24 13:50 Complete Blood Count AUTO DIFF Stat Comprehensive Metabolic Panel Stat Lipase Stat Magnesium Stat NT-proBNP (BNP-Adult 18+) Stat PTT Partial Thromboplastin Lisandro Stat Prothrombin Time INR Stat Troponin & CK Cardiac Panel Stat 03/01/24 14:10 EKG-12 Lead Stat Discontinued Medications Adenosine (Adenosine 6 Mg/2 Ml Vial) 6 mg IV NOW ONE Stop: 03/01/24 13:47 Last Admin: 03/01/24 13:41 Dose: 6 mg Documented By: SHERRY Diltiazem HCl (Diltiazem 25 Mg/5 Ml Sdv) 10 mg IV NOW ONE Stop: 03/01/24 13:43 Last Admin: 03/01/24 13:47 Dose: 10 mg Documented By: SHERRY Diltiazem HCl (Diltiazem 25 Mg/5 Ml Sdv) 10 mg IV NOW ONE Stop: 03/01/24 13:53 Last Admin: 03/01/24 13:53 Dose: 10 mg Documented By: SHERRY Sodium Chloride (Normal Saline 0.9%) 1,000 mls @ 1,000 mls/hr IV BOLUS ONE Stop: 03/01/24 15:02 Last Infusion: 03/01/24 14:37 Dose: Infused Documented By: Admin: 03/01/24 14:05 Dose: 1,000 mls/hr Documented By: SHERRY Magnesium Sulfate (Magnesium Sulfate) 2 gm in 50 mls @ 150 mls/hr IV NOW ONE Stop: 03/01/24 15:07 Last Infusion: 03/01/24 15:27 Dose: Infused Documented By: JORDIN Co-signed By: NAIMA Admin: 03/01/24 14:59 Dose: 150 mls/hr Documented By: JORDIN Co-signed By: SHERRY Propofol (Propofol 200 Mg/20 Ml Vial) 75 mg 1 mg/kg (75 mg) IV NOW ONE Stop: 03/01/24 13:56 Last Admin: 03/01/24 13:59 Dose: 75 mg Documented By: SHERRY Vital Signs Vital signs: Vital Signs - 8 hr 03/01/24 13:28 03/01/24 13:29 03/01/24 13:29 Pulse Rate 221 H Respiratory Rate 22 Blood Pressure 135/81 Pulse Oximetry 99 99 Oxygen Delivery Method Room Air Oxygen Flow Rate 03/01/24 13:30 03/01/24 13:31 03/01/24 13:31 Pulse Rate 210 H 210 H Respiratory Rate 21 Blood Pressure 137/85 Pulse Oximetry 99 99 Oxygen Delivery Method Oxygen Flow Rate 03/01/24 13:35 03/01/24 13:40 03/01/24 13:44 Pulse Rate 215 H 221 H 218 H Respiratory Rate 27 H 23 22 Blood Pressure 137/85 Pulse Oximetry 99 97 99 Oxygen Delivery Method Room Air Oxygen Flow Rate 03/01/24 13:45 03/01/24 13:47 03/01/24 13:50 Pulse Rate 209 H 203 H 188 H Respiratory Rate 22 21 Blood Pressure 137/85 Pulse Oximetry 97 96 Oxygen Delivery Method Oxygen Flow Rate 03/01/24 13:53 03/01/24 13:55 03/01/24 13:55 Pulse Rate 158 H 171 H Respiratory Rate 18 Blood Pressure 136/63 136/63 Pulse Oximetry 98 Oxygen Delivery Method Oxygen Flow Rate 03/01/24 14:00 03/01/24 14:00 03/01/24 14:04 Pulse Rate 161 H 105 H Respiratory Rate 19 18 Blood Pressure 104/53 L 115/56 L Pulse Oximetry 96 97 Oxygen Delivery Method Oxygen Flow Rate 2 03/01/24 14:05 03/01/24 14:05 03/01/24 14:10 Pulse Rate 116 H 100 H Respiratory Rate 19 20 Blood Pressure 115/56 L 134/60 Pulse Oximetry 96 100 Oxygen Delivery Method Oxygen Flow Rate 2 03/01/24 14:10 03/01/24 14:10 03/01/24 14:15 Pulse Rate 102 H 10 L Respiratory Rate 21 20 Blood Pressure 134/60 114/63 Pulse Oximetry 100 99 Oxygen Delivery Method Oxygen Flow Rate 2 03/01/24 14:15 03/01/24 14:15 03/01/24 14:20 Pulse Rate 101 H 98 H Respiratory Rate 24 20 Blood Pressure 114/63 119/64 Pulse Oximetry 98 99 Oxygen Delivery Method Oxygen Flow Rate 2 03/01/24 14:20 03/01/24 14:20 03/01/24 14:30 Pulse Rate 98 H 102 H Respiratory Rate 21 24 Blood Pressure 119/64 Pulse Oximetry 97 97 Oxygen Delivery Method Room Air Oxygen Flow Rate 03/01/24 14:31 03/01/24 14:31 03/01/24 14:35 Pulse Rate 99 H 94 H Respiratory Rate 31 H 39 H Blood Pressure 129/69 Pulse Oximetry 97 96 Oxygen Delivery Method Oxygen Flow Rate 03/01/24 14:40 03/01/24 14:45 03/01/24 14:50 Pulse Rate 91 H 92 H 88 Respiratory Rate 27 H 34 H 24 Blood Pressure Pulse Oximetry 96 97 96 Oxygen Delivery Method Oxygen Flow Rate 03/01/24 14:55 03/01/24 15:00 03/01/24 15:00 Pulse Rate 86 84 Respiratory Rate 19 26 H Blood Pressure 107/59 L Pulse Oximetry 96 96 Oxygen Delivery Method Oxygen Flow Rate 03/01/24 15:05 03/01/24 15:10 03/01/24 15:15 Pulse Rate 82 83 80 Respiratory Rate 25 H 30 H 20 Blood Pressure Pulse Oximetry 95 95 97 Oxygen Delivery Method Oxygen Flow Rate 03/01/24 15:20 03/01/24 15:55 03/01/24 16:00 Pulse Rate 83 80 79 Respiratory Rate 22 22 25 H Blood Pressure Pulse Oximetry 96 97 97 Oxygen Delivery Method Room Air Oxygen Flow Rate 03/01/24 16:05 03/01/24 16:10 Pulse Rate 76 77 Respiratory Rate 24 24 Blood Pressure Pulse Oximetry 96 97 Oxygen Delivery Method Room Air Oxygen Flow Rate MDM - Arrhythmia/Palpitations Lab Data 03/01/24 13:50 03/01/24 13:50 Labs: Lab Results 03/01/24 Range/Units 13:50 WBC 11.9 H (4.5-11.0) X10^3/uL RBC 5.16 (4.0-5.2) X10^6/uL Hgb 15.6 (12.0-16.0) g/dL Hct 47.2 H (36-46) % MCV 91.5 (80-100) fL MCH 30.3 (26-34) PG MCHC 33.1 (30-36) % RDW 14.1 (11.6-14.8) % Plt Count 311 (150-400) X10^3/uL Neut % (Auto) 62.8 (50-75) % Lymph % (Auto) 25.9 (25-40) % [place] % (Auto) 9.3 (3-14) % Eos % (Auto) 1.2 L (2-4) % Baso % (Auto) 0.8 (0-2) % Neut # (Auto) 7500 H (6064-8242) /uL Lymph # (Auto) 3100 (2105-0040) /uL [place] # (Auto) 1100 H (0-900) /uL Eos # (Auto) 100 (0-450) /uL Baso # (Auto) 100 (0-100) /uL PT 11.1 (9.4-12.5) SECONDS INR 1.0 (0.9-1.3) APTT 37 H (25.1-36.5) SECONDS Sodium 138 (137-145) mmol/L Potassium 3.7 (3.4-5.1) mmol/L Chloride 103 (98-107) mmol/L Carbon Dioxide 20 L (22-32) mmol/L BUN 22 H (7-17) mg/dL Creatinine 0.63 (0.52-1.04) mg/dL Estimated GFR > 60 (>60) mL/min BUN/Creatinine Ratio 34.9 H (6-22) Glucose 138 H (70-100) mg/dL Calcium 10.3 H (8.4-10.2) mg/dL Magnesium 1.2 L (1.6-2.3) mg/dL Total Bilirubin 0.7 (0.2-1.3) mg/dL AST 56 H (14-36) IU/L ALT 41 H (<35) IU/L Alkaline Phosphatase 71 (38-126) U/L Total Creatine Kinase 339 H (30-135) U/L Troponin I < 0.012 (0.01-0.034) ng/mL NT-Pro-B Natriuret Pep 192 H (<125) pg/mL Total Protein 7.7 (6.3-8.2) g/dL Albumin 4.8 (3.5-5.0) g/dL Globulin 2.9 (1.7-4.1) g/dL Albumin/Globulin Ratio 1.7 (1.0-2.8) Lipase 149 (23-300) U/L Imaging Data Chest x-ray: Radiologist's Impresson: PROCEDURE: XR CHEST 1V INDICATIONS: chest pain TECHNIQUE: One view of the chest was acquired. COMPARISON: [facility], CR, XR CHEST 2V, 09/29/2020, 10:40. FINDINGS: Surgical changes and devices: A pacer device is seen. The leads are seen in stable positions. Cholecystectomy clips are seen. Lungs and pleura: Lungs are clear. No pleural effusions or pneumothorax. Mediastinum: The cardiac contours are within normal limits. The aorta demonstrates calcification and tortuosity. Bones and chest wall: No suspicious bony lesions. Age-appropriate bony degenerative changes are seen. Overlying soft tissues appear unremarkable. IMPRESSION: No acute cardiopulmonary abnormality is seen. Postoperative and degenerative changes are seen. Dictated by: Salomón Bedolla M.D. on 03/01/2024 at 15:01 ECG Data Attestation: I personally reviewed and interpreted this ECG as follows: Prior ECG tracings: not available for review Interpretation: EKG 1. Sinus tachycardia rate 209 narrow rhythm EKG 2. Normal sinus rhythm rate 103 [place] interval 130 QRS 92 QTC 461 MDM Narrative Medical decision making narrative: MDM CC: Tachycardia Complicating co-morbidities: Pacemaker, diet-controlled diabetes Corroborating data: [ ] Data collected from: [ ] Medical records reviewed: no Differential considered: SVT, atrial fibrillation with WPW, Exam documented above, pertinent findings include: Awake alert talking appears well tachycardic no hypoxia or conversational dyspnea Lab Test results independently reviewed as above. Pertinent findings: WBC 11.9 hemoglobin 15.6, hematocrit 47.2 platelets 311 Sodium 138, potassium 3.7, chloride 103, carbon dioxide 20, BUN 22, creatinine 0.6 bilirubin 0.7 AST 56 ALT 41 troponin negative CPK Independently reviewed EKG as above: Atrial fibrillation Imaging studies independently reviewed: No acute cardiopulmonary process Consultations: None Treatments: Adenosine diltiazem cardioversion magnesium Re-evaluations: Initially tried a vasovagal maneuver to cardiovert but was unsuccessful. Patient initially was given adenosine it did slow down into an atrial fibrillation then given diltiazem however quickly sped back up into the heart rates in the 200s. At that time decision made to cardiovert. No contraindications symptoms started within a couple of hours Discussion: Patient presents today with pretty significant tachycardia it does appear to be almost in AFib with RVR although it is too fast for that. Fortunately she cardioverted pretty easily but did require 2 shocks. She was monitored after sometime she was also given magnesium while in the ED because her magnesium was low. She also stopped taking magnesium about a week and a half ago. This may be contributing to some of this. She has a assistant to the dean whom I recommend that she follow-up with. She is taking aspirin daily which is reasonable no need for further anticoagulation at this time. CATINA?DS?-VASc Score for Atrial Fibrillation Stroke Risk from [employer] on 03/01/2024 All calculations should be rechecked by clinician prior to use RESULT SUMMARY: 1 points Stroke risk was 0.6% per year in >90,000 patients (the [place] Atrial Fibrillation Cohort Study) and 0.9% risk of stroke/TIA/systemic embolism.

One recommendation suggests a 0 score for men or 1 score for women (no clinical risk factors) is ?low? risk and may not require anticoagulation; a 1 score for men or 2 score for women is ?low-moderate? risk and should consider anticoagulation; and a score >= for men or >= for women is ?moderate-high? risk and should otherwise be an anticoagulation candidate. INPUTS: Age ?> 0 = <65 Sex ?> 1 = Female CHF history ?> 0 = No Hypertension history ?> 0 = No Stroke/TIA/thromboembolism history ?> 0 = No Vascular disease history (prior ND, peripheral artery disease, or aortic plaque) ?> 0 = No Diabetes history ?> 0 = No Discharge Plan Departure Patient Disposition: Home Clinical Impression: Atrial fibrillation with rapid ventricular response Instructions: DI for Atrial Fibrillation Activity Restrictions/Additional Instructions: *You have been diagnosed with atrial fibrillation *What to do: Please continue taking your magnesium. Call Dr. Cruz tomorrow to schedule an appointment. You were shocked twice here in the ED. *Continue to take medications as directed Continue aspirin 81 mg daily *Follow up with your primary care provider in 2-3 days or call [phone] *Return to ER if you should have increasing chest pain palpitations heart rate greater than 130 or any new, worsening or concerning symptoms Prescriptions: No Action albuterol sulfate [Proventil HFA] 90 MCG/PUFF HFA aerosol inhaler Qty: 0 chlorthalidone 25 MG tablet 25 mg PO QDAY Qty: 30 meloxicam [Mobic] 15 MG tablet 15 mg PO AMCC Qty: 30 theophylline 300 MG tablet extended release 12 hr 300 mg PO QDAY Qty: 0 hydrocodone-acetaminophen [Blackstone] 5 MG/325 MG tablet 1 tab PO TID PRNQty: 0 zolpidem [Ambien] 10 MG tablet PRNQty: 0 omeprazole 20 MG tablet,delayed release (DR/EC) 20 mg PO QDAY Qty: 0 lisinopril 5 MG tablet 5 mg PO QDAY Qty: 0 atorvastatin [Lipitor] 40 MG tablet 40 mg PO QDAY Qty: 0 metformin [Glucophage XR] 500 MG tablet extended release 24 hr 500 mg PO QDAY Qty: 0 oxymetazoline [Afrin (oxymetazoline)] 0.05 % spray,non-aerosol 1 spray Intranasal Q12HP PRNQty: 0 aspirin 325 MG tablet,delayed release (DR/EC) 325 mg PO QDAY Qty: 0 amlodipine [Norvasc] 5 MG tablet 5 mg PO QDAY Qty: 0 Referrals: Mercedes Cortes PA-C [Primary Care Provider] - Stand Alone Forms: Patient Portal/API
== END 2024-03-01 16:19 | disposition home or self-care (01) ==
PROVIDERS: Emergency Provider Emergency Medicine; PCP Physician Assistant
DX: I48.20 Chronic atrial fibrillation, unspecified (principal); R07.9 Chest pain, unspecified; Z95.0 Presence of cardiac pacemaker; Z79.899 Other long term (current) drug therapy
CPT/HCPCS: 71045; 80053; 82550; 83690; 83735; 83880; 84484; 85025; 85610; 85730; 92960; 93005; 96361; 96374; 96375; 99152; 99284; 99285; J0153; J2704; J3475

== ENCOUNTER → 2024-03-11 08:55 | Outpatient (CLI) | payer OTHER, SELFPAY ==
[2024-03-11 11:25] LABS: BUN Creatinine Ratio 41.5 (6-22); Blood Urea Nitrogen 27 mg/dL (7-17); Calcium 10.4 mg/dL (8.4-10.2); Carbon Dioxide 27 mmol/L (22-32); Chloride 99 mmol/L (98-107); Estimated Glomerular Filt Rate > 60 mL/min (>60); Glucose 109 mg/dL (70-100); HEMOLYSIS < 15 (0-50); Magnesium 1.9 mg/dL (1.6-2.3); Potassium 5.3 mmol/L (3.4-5.1); Sodium 139 mmol/L (137-145)
== END ==
PROVIDERS: PCP Physician Assistant; Referring Provider Internal Medicine; Visit Provider Internal Medicine
DX: I42.0 Dilated cardiomyopathy (principal)
CPT/HCPCS: 36415; 80048; 83735

== ENCOUNTER → 2024-03-18 13:34 | Outpatient (CLI) | payer OTHER, SELFPAY ==
[2024-03-18 15:06] LABS: BUN Creatinine Ratio 40.7 (6-22); Blood Urea Nitrogen 24 mg/dL (7-17); Calcium 9.5 mg/dL (8.4-10.2); Carbon Dioxide 28 mmol/L (22-32); Chloride 100 mmol/L (98-107); Estimated Glomerular Filt Rate > 60 mL/min (>60); Glucose 125 mg/dL (70-100); HEMOLYSIS 36 (0-50); Potassium 4.1 mmol/L (3.4-5.1); Sodium 135 mmol/L (137-145)
== END ==
PROVIDERS: PCP Physician Assistant; Referring Provider Internal Medicine; Visit Provider Internal Medicine
DX: I42.9 Cardiomyopathy, unspecified (principal)
CPT/HCPCS: 36415; 80048

== ENCOUNTER → 2024-12-06 13:22 | Outpatient (CLI) | payer OTHER, SELFPAY ==
--- NOTE | 2024-12-06 13:23 | DI.MG.S_ITS ---
MM screening mammo BI: 12/06/2024. BI-RADS: 2 CLINICAL: 59-year old female for bilateral screening mammogram. Tyrer-Cuzick lifetime risk of 2.1%. No personal or first-degree family history of breast cancer. PRIOR EXAMS 12/04/2023, 06/02/2023, 10/31/2022, 01/28/2020, 01/20/2017. MAMMOGRAPHY TECHNIQUE: 2D and 3D (tomosynthesis) digital mammographic views obtained, with additional images as needed for full coverage. Current study was also evaluated with a Computer Aided Detection (CAD) system. DENSITY B. There are scattered areas of fibroglandular density. MAMMOGRAPHY FINDINGS Right: Benign-appearing asymmetry noted on the right. There are no suspicious masses, calcifications, or other findings in the breast. Left: No suspicious mass, asymmetry, microcalcification, or other abnormality seen. IMPRESSION: Right * No evidence of malignancy with benign findings. Left * No evidence of malignancy. RECOMMENDATIONS Bilateral * Annual screening mammography. OVERALL ASSESSMENT CATEGORY BI-RADS-2: Benign. The [employer] recommends annual screening mammography beginning at age 40 for women with average risk of breast cancer. ELECTRONICALLY SIGNED: Layton Veloz M.D. on 12/06/2024 at 05:51:54 PM PT Interpreting Station ID: [id number]
== END ==
PROVIDERS: PCP Physician Assistant; Referring Provider Physician Assistant; Visit Provider Physician Assistant
DX: Z12.31 Encounter for screening mammogram for malignant neoplasm of breast (principal)
CPT/HCPCS: 77063; 77067